=== PATIENT | male | born 1960 | race Caucasian/White ===

== ENCOUNTER 2019-06-14 11:07 | Inpatient (IN) | payer MEDICAID ==
[~2019-06-14] VITALS: Ht 172.7 cm; Wt 88.7 kg
[2019-06-14] MEDS ORDERED: AZITHROMYCIN 500 MG in DEXT 5% WATER 250 ML IV STA (11:19)
[2019-06-14] MEDS ORDERED: SODIUM CHLORIDE 0.9% 1000ML BAG (SEPSIS BOLUS) IV ONE (11:30)
[2019-06-14] MEDS ORDERED: ACETAMINOPHEN 650MG SUPP PR ONE (11:45)
[2019-06-14 12:16] LABS: CLARITY URINE CLEAR (CLEAR); COLOR URINE DARK YELLOW (YELLOW); KETONES URINE 1+ (NEGATIVE); LEUKOCYTE ESTERASE URINE TRACE (NEGATIVE); NITRITE URINE NEGATIVE (NEGATIVE); OCCULT BLOOD URINE 3+ (NEGATIVE); PH URINE 5.5 (4.5-8.0); PROTEIN URINE 4+ (NEGATIVE)
[2019-06-14 12:17] LABS: BASOPHILS % 0.3 % (0.0-2.0); EOSINOPHILS % 0.1 % (0.0-5.0); HEMATOCRIT. 46.5 % (42.0-52.0); HEMOGLOBIN. 16.3 g/dL (14.0-18.0); LYMPHOCYTES % 12.5 % (20.0-50.0); MEAN CORPUSCULAR VOLUME 88.3 fL (80.0-94.0); MEAN PLATELET VOLUME 9.8 fl (7.4-10.4); MONOCYTES % 8.1 % (2.0-8.0); PLATELET 205 x1000/uL (130-400); RED BLOOD CELL COUNT 5.26 mill/uL (4.7-6.1); RED CELL DISTRIBUTION WIDTH 14.8 % (11.6-14.6)
[2019-06-14 12:29] LABS: CHLORIDE 96 mEq/L (98-107)
[2019-06-14] MEDS ORDERED: KCL 10MEQ/50ML PREMIX 50 ML IV ONE (13:00)
[2019-06-14] MEDS ORDERED: ONDANSETRON HCL 4MG/2ML INJ IV PRN (13:30)
[2019-06-14] MEDS ORDERED: FUROSEMIDE 40MG/4ML VIAL IVP ONE ×2 (13:30→15:15)
[2019-06-14] MEDS ORDERED: BENZONATATE 100MG CAPSULE PO PRN (13:30)
[2019-06-14] MEDS ORDERED: METOCLOPRAMIDE HCL 10MG/2ML VIAL IV PRN (13:30)
[2019-06-14] MEDS ORDERED: AZITHROMYCIN 250 MG TABLET NG SCH (15:15)
[2019-06-14] MEDS: FUROSEMIDE 40MG/4ML VIAL IVP NR (16:39)
[2019-06-14] MEDS ORDERED: CEFTRIAXONE 1 G PREMIX 50 ML IV NR (18:30)
[2019-06-14] MEDS: ACETAMINOPHEN 325MG TABLET PO PRN (21:06)
[2019-06-14] MEDS: THIAMINE HCL 100MG TABLET PO SCH (23:15)
[2019-06-15] VITALS (27 sets, daily range): BP systolic 82–138; BP diastolic 51–89
[2019-06-15] MEDS ORDERED: FUROSEMIDE 40MG/4ML VIAL IVP SCH (03:45)
[2019-06-15] MEDS ORDERED: LACT1CAP68 MT (04:20)
[2019-06-15] MEDS ORDERED: L. A1POW4 PO (04:20)
[2019-06-15] MEDS ORDERED: DOCU50LI25 MT (04:20)
[2019-06-15] MEDS ORDERED: HYDR12.54 MT (04:20)
[2019-06-15] MEDS ORDERED: PHEN64.8 MT (04:20)
[2019-06-15] MEDS ORDERED: PRIM250T33 MT (04:20)
[2019-06-15] MEDS ORDERED: LACT10SO30 MT (04:20)
[2019-06-15] MEDS ORDERED: AZITHROMYCIN 500 MG TABLET PO SCH (09:00)
[2019-06-15] MEDS ORDERED: PANTOPRAZOLE SODIUM 40 MG/VIAL IV SCH (09:00)
[2019-06-15] MEDS: ENOXAPARIN 30MG/0.3ML SYR SUBCUT SCH ×2 (09:17→22:48)
[2019-06-15] MEDS: ASCORBIC ACID 500 MG TABLET PO SCH ×4 (09:18→22:48)
[2019-06-15] MEDS: THIAMINE HCL 100MG TABLET PO SCH (09:18)
[2019-06-15] MEDS: ZINC SULFATE 220 MG ( 50 ) CAPSULE PO SCH (09:18)
[2019-06-15] MEDS: AZITHROMYCIN 250 MG TABLET NG SCH (09:18)
[2019-06-15] MEDS: ACETAMINOPHEN 325MG TABLET PO PRN (09:44)
[2019-06-15] MEDS: PHENOBARBITAL 60MG TABLET GT SCH ×2 (11:07→22:48)
[2019-06-15 11:25] LABS: CHLORIDE 99 mEq/L (98-107)
[2019-06-15 11:31] LABS: PHOSPHORUS 1.9 mg/dL (2.5-4.9)
[2019-06-15] MEDS ORDERED: PNEUMOCOCCAL 23-VAL P-SAC VAC 0.5 ML IM ONE (12:00)
[2019-06-15] MEDS ORDERED: POTASSIUM CHLORIDE 20MEQ TABLET SR PO SCH (12:30)
[2019-06-15] MEDS ORDERED: POTASSIUM CHLORIDE 20MEQ/PACKET NG SCH (13:00)
[2019-06-15] MEDS: FUROSEMIDE 40MG/4ML VIAL IVP NR (16:00)
[2019-06-15] MEDS: CEFTRIAXONE 1,000 MG in DEXTROSE 5% WATER 50 ML IV SCH (16:39)
[2019-06-15] MEDS ORDERED: CEFTRIAXONE 1 G PREMIX 50 ML IV SCH ×2 (17:00→20:00)
[2019-06-15] MEDS ORDERED: POTASSIUM PHOS,M-BASIC-D-BASIC 20 MMOL in DEXT 5% WATER 243.3333 ML IV NR (18:30)
[2019-06-15 20:49] LABS: COVID-19 PCR RNA DETECTED
[2019-06-16] VITALS: BP 114/82
[2019-06-16 04:00] VITALS: BP 126/82
[2019-06-16 08:00] VITALS: BP 128/79
[2019-06-16] MEDS: PHENOBARBITAL 60MG TABLET GT SCH ×2 (09:50→21:54)
[2019-06-16] MEDS: AZITHROMYCIN 250 MG TABLET NG SCH (09:50)
[2019-06-16] MEDS: ENOXAPARIN 30MG/0.3ML SYR SUBCUT SCH ×2 (09:50→21:53)
[2019-06-16] MEDS: ZINC SULFATE 220 MG ( 50 ) CAPSULE PO SCH (09:50)
[2019-06-16] MEDS: ASCORBIC ACID 500 MG TABLET PO SCH ×2 (09:50→13:12)
[2019-06-16 12:00] VITALS: BP 115/79
[2019-06-16 13:17] LABS: COVID-19 PCR RNA DETECTED
[2019-06-16 16:00] VITALS: BP 128/78
[2019-06-16] MEDS: CEFTRIAXONE 1,000 MG in DEXTROSE 5% WATER 50 ML IV SCH (17:53)
[2019-06-16] MEDS: HYDROXYCHLOROQUINE SULFATE 200MG TABLET PO SCH (18:21)
[2019-06-16 20:00] VITALS: BP 128/84
[2019-06-17] VITALS: BP 126/82
[2019-06-17 04:00] VITALS: BP 135/89
[2019-06-17 06:27] LABS: CHLORIDE 105 mEq/L (98-107)
[2019-06-17 06:28] LABS: BASOPHILS % 0.4 % (0.0-2.0); EOSINOPHILS % 0.7 % (0.0-5.0); HEMATOCRIT. 42.2 % (42.0-52.0); HEMOGLOBIN. 14.7 g/dL (14.0-18.0); LYMPHOCYTES % 10.7 % (20.0-50.0); MEAN CORPUSCULAR HEMOGLOBIN 30.3 pg (28.0-32.0); MEAN PLATELET VOLUME 9.9 fl (7.4-10.4); MONOCYTES % 6.1 % (2.0-8.0); NEUTROPHILS % 82.1 % (40.0-76.0); PLATELET 271 x1000/uL (130-400); RED BLOOD CELL COUNT 4.85 mill/uL (4.7-6.1); RED CELL DISTRIBUTION WIDTH 14.7 % (11.6-14.6)
[2019-06-17 08:00] VITALS: BP 123/88
[2019-06-17] MEDS ORDERED: POTASSIUM CHLORIDE 20MEQ/PACKET GT SCH (08:00)
[2019-06-17] MEDS ORDERED: POTASSIUM CHLORIDE INJ 40 MEQ in DEXT 5% WATER 250 ML IV SCH (09:00)
[2019-06-17] MEDS: AZITHROMYCIN 250 MG TABLET NG SCH (09:18)
[2019-06-17] MEDS: HYDROXYCHLOROQUINE SULFATE 200MG TABLET PO SCH ×2 (09:18→17:51)
[2019-06-17] MEDS: ZINC SULFATE 220 MG ( 50 ) CAPSULE PO SCH (09:18)
[2019-06-17] MEDS: ASCORBIC ACID 500 MG TABLET PO SCH ×2 (09:19→17:52)
[2019-06-17] MEDS: PHENOBARBITAL 60MG TABLET GT SCH ×2 (09:19→20:12)
[2019-06-17] MEDS: ENOXAPARIN 30MG/0.3ML SYR SUBCUT SCH ×2 (09:19→20:13)
[2019-06-17 12:00] VITALS: BP 124/86
[2019-06-17 12:31] LABS: PHOSPHORUS 1.2 mg/dL (2.5-4.9)
[2019-06-17 16:00] VITALS: BP 114/78
[2019-06-17] MEDS: CEFTRIAXONE 1,000 MG in DEXTROSE 5% WATER 50 ML IV SCH (17:52)
[2019-06-17] MEDS ORDERED: POTASSIUM PHOS,M-BASIC-D-BASIC 20 MMOL in DEXT 5% WATER 243.3333 ML IV ONE (18:00)
[2019-06-17 20:00] VITALS: BP 126/82
[2019-06-18] VITALS: BP 137/56
[2019-06-18 04:00] VITALS: BP 141/87
[2019-06-18 07:28] LABS: CHLORIDE 104 mEq/L (98-107)
[2019-06-18 07:35] LABS: PHOSPHORUS 1.8 mg/dL (2.5-4.9)
[2019-06-18] MEDS: POTASSIUM CHLORIDE 20MEQ TABLET SR PO NR ×2 (07:45→09:34)
[2019-06-18 08:00] VITALS: BP 142/69
[2019-06-18] MEDS: PHENOBARBITAL 60MG TABLET GT SCH ×2 (09:34→20:07)
[2019-06-18] MEDS: ZINC SULFATE 220 MG ( 50 ) CAPSULE PO SCH (09:34)
[2019-06-18] MEDS: HYDROXYCHLOROQUINE SULFATE 200MG TABLET PO SCH ×2 (09:34→17:55)
[2019-06-18] MEDS: ASCORBIC ACID 500 MG TABLET PO SCH ×2 (09:34→17:55)
[2019-06-18] MEDS: AZITHROMYCIN 250 MG TABLET NG SCH (09:34)
[2019-06-18] MEDS: ENOXAPARIN 30MG/0.3ML SYR SUBCUT SCH ×2 (09:35→20:07)
[2019-06-18 12:00] VITALS: BP 129/80
[2019-06-18] MEDS ORDERED: POTASSIUM PHOS,M-BASIC-D-BASIC 20 MMOL in DEXT 5% WATER 243.3333 ML IV NR (13:00)
[2019-06-18 16:00] VITALS: BP 142/86
[2019-06-18] MEDS: CEFTRIAXONE 1,000 MG in DEXTROSE 5% WATER 50 ML IV SCH (18:35)
[2019-06-18 20:00] VITALS: BP 129/81
[2019-06-18] MEDS: ACETAMINOPHEN 325MG TABLET PO PRN (20:55)
[2019-06-19] VITALS: BP 118/75
[2019-06-19 04:00] VITALS: BP 114/78
[2019-06-19 08:00] VITALS: BP 130/79
[2019-06-19] MEDS: ENOXAPARIN 30MG/0.3ML SYR SUBCUT SCH ×2 (10:42→21:12)
[2019-06-19] MEDS: ASCORBIC ACID 500 MG TABLET PO SCH ×2 (10:42→19:05)
[2019-06-19] MEDS: ZINC SULFATE 220 MG ( 50 ) CAPSULE PO SCH (10:42)
[2019-06-19] MEDS: HYDROXYCHLOROQUINE SULFATE 200MG TABLET PO SCH ×2 (10:43→19:05)
[2019-06-19] MEDS: PHENOBARBITAL 60MG TABLET GT SCH ×2 (10:43→21:12)
[2019-06-19 12:00] VITALS: BP 128/78
[2019-06-19 16:00] VITALS: BP 124/75
[2019-06-19 20:00] VITALS: BP 126/88
[2019-06-20] VITALS: BP 123/85
[2019-06-20 04:00] VITALS: BP 127/84
[2019-06-20 06:44] LABS: CHLORIDE 109 mEq/L (98-107)
[2019-06-20 06:49] LABS: PHOSPHORUS 3.2 mg/dL (2.5-4.9)
[2019-06-20] MEDS ORDERED: POTASSIUM CHLORIDE 20MEQ TABLET SR PO ONE (07:00)
[2019-06-20 08:00] VITALS: BP 127/76
[2019-06-20] MEDS: HYDROXYCHLOROQUINE SULFATE 200MG TABLET PO SCH ×2 (10:00→17:39)
[2019-06-20] MEDS: ENOXAPARIN 30MG/0.3ML SYR SUBCUT SCH ×2 (10:00→22:06)
[2019-06-20] MEDS: ZINC SULFATE 220 MG ( 50 ) CAPSULE PO SCH (10:01)
[2019-06-20] MEDS: ASCORBIC ACID 500 MG TABLET PO SCH ×2 (10:01→17:39)
[2019-06-20] MEDS: PHENOBARBITAL 60MG TABLET GT SCH (10:16)
[2019-06-20 13:14] VITALS: BP 102/77
[2019-06-20] MEDS ORDERED: POTASSIUM CHLORIDE 20MEQ TABLET SR PO SCH (13:30)
[2019-06-20 16:55] VITALS: BP 115/85
[2019-06-20 20:00] VITALS: BP 115/77
[2019-06-21] VITALS: BP 144/88
[2019-06-21 04:00] VITALS: BP 122/75
[2019-06-21 08:00] VITALS: BP 117/83
[2019-06-21] MEDS: ENOXAPARIN 30MG/0.3ML SYR SUBCUT SCH (08:27)
[2019-06-21] MEDS: HYDROXYCHLOROQUINE SULFATE 200MG TABLET PO SCH (08:27)
[2019-06-21] MEDS: ASCORBIC ACID 500 MG TABLET PO SCH ×2 (08:27→16:54)
[2019-06-21] MEDS: ZINC SULFATE 220 MG ( 50 ) CAPSULE PO SCH (08:27)
[2019-06-21 12:00] VITALS: BP 114/83
[2019-06-21 16:00] VITALS: BP 132/81
[2019-06-21 20:00] VITALS: BP 126/79
[2019-06-22] VITALS: BP 130/84
[2019-06-22 04:00] VITALS: BP 119/78
[2019-06-22] MEDS: ACETAMINOPHEN 325MG TABLET PO PRN (04:18)
[2019-06-22 08:00] VITALS: BP 117/73
[2019-06-22] MEDS: ZINC SULFATE 220 MG ( 50 ) CAPSULE PO SCH (09:07)
[2019-06-22] MEDS: ASCORBIC ACID 500 MG TABLET PO SCH ×2 (09:07→16:17)
[2019-06-22] MEDS: ENOXAPARIN 40MG/0.4ML SYR SUBCUT SCH (09:07)
[2019-06-22 12:00] VITALS: BP 129/75
[2019-06-22 16:00] VITALS: BP 125/80
[2019-06-22 20:00] VITALS: BP 121/91
[2019-06-23] VITALS: BP 125/86
[2019-06-23 04:00] VITALS: BP 128/81
[2019-06-23] MEDS: ACETAMINOPHEN 325MG TABLET PO PRN (06:35)
[2019-06-23 08:00] VITALS: BP 110/68
[2019-06-23] MEDS: ZINC SULFATE 220 MG ( 50 ) CAPSULE PO SCH (09:58)
[2019-06-23] MEDS: ASCORBIC ACID 500 MG TABLET PO SCH ×2 (09:59→17:13)
[2019-06-23] MEDS: ENOXAPARIN 40MG/0.4ML SYR SUBCUT SCH (09:59)
[2019-06-23 10:08] LABS: CHLORIDE 105 mEq/L (98-107)
[2019-06-23 12:52] VITALS: BP 103/73
[2019-06-23] MEDS ORDERED: POTASSIUM CHLORIDE 20MEQ TABLET SR PO NR (13:29)
[2019-06-23 16:31] VITALS: BP 110/72
[2019-06-23 20:05] VITALS: BP 109/77
[2019-06-24] VITALS (7 sets, daily range): BP systolic 89–140; BP diastolic 61–80
[2019-06-24] MEDS: ASCORBIC ACID 500 MG TABLET PO SCH ×2 (09:49→17:30)
[2019-06-24] MEDS: ENOXAPARIN 40MG/0.4ML SYR SUBCUT SCH (09:49)
[2019-06-24] MEDS: ZINC SULFATE 220 MG ( 50 ) CAPSULE PO SCH (09:49)
[2019-06-25] VITALS: BP 115/74
[2019-06-25 04:00] VITALS: BP 118/72
[2019-06-25 08:00] VITALS: BP 118/76
[2019-06-25] MEDS: ZINC SULFATE 220 MG ( 50 ) CAPSULE PO SCH (08:32)
[2019-06-25] MEDS: ENOXAPARIN 40MG/0.4ML SYR SUBCUT SCH (08:32)
[2019-06-25] MEDS: ASCORBIC ACID 500 MG TABLET PO SCH ×2 (08:32→22:51)
[2019-06-25 12:00] VITALS: BP 110/70
[2019-06-25 16:00] VITALS: BP 113/69
[2019-06-25 20:00] VITALS: BP 128/84
[2019-06-26] VITALS: BP 125/84
[2019-06-26 04:00] VITALS: BP 132/80
[2019-06-26 08:00] VITALS: BP 120/81
[2019-06-26] MEDS: ZINC SULFATE 220 MG ( 50 ) CAPSULE PO SCH (09:31)
[2019-06-26] MEDS: ASCORBIC ACID 500 MG TABLET PO SCH ×2 (09:31→16:15)
[2019-06-26] MEDS: ENOXAPARIN 40MG/0.4ML SYR SUBCUT SCH (09:31)
[2019-06-26 12:00] VITALS: BP 130/69
[2019-06-26 15:58] VITALS: BP 130/83
[2019-06-26 20:00] VITALS: BP 119/88
[2019-06-27] VITALS (7 sets, daily range): BP systolic 119–136; BP diastolic 80–90
[2019-06-27] MEDS: ACETAMINOPHEN 325MG TABLET PO PRN (00:47)
[2019-06-27] MEDS: ZINC SULFATE 220 MG ( 50 ) CAPSULE PO SCH (09:46)
[2019-06-27] MEDS: ENOXAPARIN 40MG/0.4ML SYR SUBCUT SCH (09:46)
[2019-06-27] MEDS: ASCORBIC ACID 500 MG TABLET PO SCH ×2 (09:46→16:30)
[2019-06-27 10:11] LABS: HEMATOCRIT 40.7 % (42.0-52.0); HEMOGLOBIN 13.9 g/dL (14.0-18.0); MEAN CORPUSCULAR VOLUME 90.6 fL (80.0-94.0); PLATELET 293 x1000/uL (130-400); RED BLOOD CELL COUNT 4.49 mill/uL (4.7-6.1); RED CELL DISTRIBUTION WIDTH 14.6 % (11.6-14.6)
[2019-06-27 10:17] LABS: CHLORIDE 104 mEq/L (98-107)
[2019-06-28] VITALS: BP 126/86
[2019-06-28 04:00] VITALS: BP 102/71
[2019-06-28 08:00] VITALS: BP 131/87
[2019-06-28] MEDS: ZINC SULFATE 220 MG ( 50 ) CAPSULE PO SCH (08:46)
[2019-06-28] MEDS: ASCORBIC ACID 500 MG TABLET PO SCH ×2 (08:46→16:33)
[2019-06-28] MEDS: ENOXAPARIN 40MG/0.4ML SYR SUBCUT SCH (08:46)
[2019-06-28 12:00] VITALS: BP 136/87
[2019-06-28 16:00] VITALS: BP 131/92
[2019-06-28 20:00] VITALS: BP 122/74
[2019-06-29 00:40] VITALS: BP 140/99
[2019-06-29 04:00] VITALS: BP 128/87
[2019-06-29 08:00] VITALS: BP 132/91
[2019-06-29] MEDS: ENOXAPARIN 40MG/0.4ML SYR SUBCUT SCH (08:45)
[2019-06-29] MEDS: ZINC SULFATE 220 MG ( 50 ) CAPSULE PO SCH (08:45)
[2019-06-29] MEDS: ASCORBIC ACID 500 MG TABLET PO SCH ×2 (08:46→16:28)
[2019-06-29 12:00] VITALS: BP 119/92
[2019-06-29 16:00] VITALS: BP 111/83
[2019-06-29 20:00] VITALS: BP 143/101
[2019-06-30] VITALS: BP 139/98
[2019-06-30] MEDS: ACETAMINOPHEN 325MG TABLET PO PRN (03:22)
[2019-06-30 04:00] VITALS: BP 148/99
[2019-06-30 08:00] VITALS: BP 154/97
[2019-06-30] MEDS: ZINC SULFATE 220 MG ( 50 ) CAPSULE PO SCH (09:33)
[2019-06-30] MEDS: ENOXAPARIN 40MG/0.4ML SYR SUBCUT SCH (09:33)
[2019-06-30] MEDS: ASCORBIC ACID 500 MG TABLET PO SCH ×2 (09:33→18:02)
[2019-06-30 12:00] VITALS: BP 139/92
[2019-06-30 16:00] VITALS: BP 131/95
[2019-06-30 20:00] VITALS: BP 115/92
[2019-07-01] VITALS: BP 127/93
[2019-07-01 04:00] VITALS: BP 130/90
[2019-07-01 08:00] VITALS: BP 120/87
[2019-07-01] MEDS: ASCORBIC ACID 500 MG TABLET PO SCH (09:15)
[2019-07-01] MEDS: ZINC SULFATE 220 MG ( 50 ) CAPSULE PO SCH (09:15)
[2019-07-01] MEDS: ENOXAPARIN 40MG/0.4ML SYR SUBCUT SCH (09:15)
[2019-07-01 15:22] VITALS: BP 131/86
== END 2019-07-01 16:45 | DRG 720 ==
LOC: ER 11:30 → MICUNO 12:46 → EEVIPCON 12:46 → EDBEDREQ 12:56 → EDBEDREQTM 12:56 → EDBEDREQ 19:35 → CANRESERV 06-15 01:09 → ENRESERV 06-15 01:09 → 7WST 06-15 15:02 → 5WST 06-29 18:14
PROVIDERS: ADMIT Internal Medicine; ATTEND Internal Medicine
DX: A41.89 Other specified sepsis (principal); U07.1 COVID-19; J96.01 Acute respiratory failure with hypoxia; G93.41 Metabolic encephalopathy; E44.0 Moderate protein-calorie malnutrition; D72.810 Lymphocytopenia; E11.9 Type 2 diabetes mellitus without complications; E87.8 Other disorders of electrolyte and fluid balance, not elsewhere classified; J12.89 Other viral pneumonia; E87.1 Hypo-osmolality and hyponatremia; E87.6 Hypokalemia; G40.909 Epilepsy, unspecified, not intractable, without status epilepticus; I10 Essential (primary) hypertension; E83.39 Other disorders of phosphorus metabolism; Z68.29 Body mass index [BMI] 29.0-29.9, adult; Z87.440 Personal history of urinary (tract) infections; Z93.1 Gastrostomy status
CPT/HCPCS: 36415; 71045; 80048; 80053; 81003; 82728; 82962; 83605; 83615; 83735; 83880; 84100; 84145; 84484; 85025; 85027; 85379; 86140; 87635; 87804; 90732; 93005; 99291; C9113; J0456; J0696; J1650; J1940; J3480; J3490; J7030; J7060

== ENCOUNTER 2022-08-25 08:57 | Inpatient (IN) | payer MEDICAID ==
[~2022-08-25] VITALS: Ht 167.6 cm; Wt 107.5 kg
[~2022-08-25 08:57] MED LIST: DOCU50LI25 MT; HYDR12.54 MT; LACT10SO81 MT; LACT1CAP68 MT; PHEN64.8 MT; PRIM250T7 MT
[2022-08-25 09:29] LABS: BG BASE EXCESS -1.7 mmol/L (-2.0-2.0); BG DEOXYHEMOGLOBIN 0.2 % (0.0-5.0); BG FRACTION INSPIRED OXYGEN 100; BG HCO3 ACT 22.2 mmol/L (22.0-26.0); BG METHEMOGLOBIN 0.4 % (0.0-1.5); BG OXYGEN SATURATION 99.8 % (92.0-98.5); BG OXYHEMOGLOBIN 98.4 % (94.0-97.0); BG PCO2 35.5 mmHg (35.0-45.0); BG PH 7.414 (7.350-7.450); BG PO2 382.6 mmHg (75.0-100.0); BG SAMPLE SITE RIGHT RADIAL; BG TOTAL HEMOGLOBIN 16.4 g/dL (12.0-18.0); BG VENT MODE MASK - NRB
[2022-08-25 09:58] LABS: BASOPHILS % 0.6 % (0.0-2.0); EOSINOPHILS % 0.7 % (0.0-5.0); HEMATOCRIT. 43.1 % (42.0-52.0); HEMOGLOBIN. 14.8 g/dL (14.0-18.0); LYMPHOCYTES % 10.3 % (20.0-50.0); MEAN CORPUSCULAR HEMOGLOBIN 30.6 pg (28.0-32.0); MEAN CORPUSCULAR VOLUME 89.5 fL (80.0-94.0); MEAN PLATELET VOLUME 8.8 fl (7.4-10.4); MONOCYTES % 5.9 % (2.0-8.0); NEUTROPHILS % 82.5 % (40.0-76.0); PLATELET 226 x1000/uL (130-400); RED BLOOD CELL COUNT 4.82 mill/uL (4.7-6.1); RED CELL DISTRIBUTION WIDTH 14.4 % (11.6-14.6)
[2022-08-25 10:06] LABS: CHLORIDE 107 mEq/L (98-107)
[2022-08-25 10:16] LABS: ETHANOL BLOOD < 10 mg/dL (-10)
[2022-08-25 10:32] LABS: *AMPHETAMINES SCREEN URINE NEGATIVE (NEGATIVE); *BARBITURATES SCREEN URINE PRESUMTIVE POSITIVE (NEGATIVE); *BENZODIAZEPINES SCREEN URINE NEGATIVE (NEGATIVE); *COCAINE SCREEN URINE NEGATIVE (NEGATIVE); CANNABINOID URINE SCREEN NEGATIVE (NEGATIVE); METHADONE URINE SCREEN NEGATIVE (NEGATIVE); OPIATES URINE SCREEN NEGATIVE (NEGATIVE); PHENCYCLIDINE URINE SCREEN NEGATIVE (NEGATIVE)
[2022-08-25 14:00] VITALS: BP 141/83; PULSE 72; RESP 20; TEMP 97.3
[2022-08-25 14:12] VITALS: BP 132/87; PULSE 77; RESP 20; TEMP 97.5
[2022-08-25 16:00] VITALS: BP 141/83; PULSE 72; RESP 20; TEMP 97.3
[2022-08-25] MEDS ORDERED: CLONIDINE 0.1MG TABLET PO PRN (16:30)
[2022-08-25] MEDS ORDERED: MAGNESIUM/ALUMINUM HYDROXIDE/SIMETHICONE 30ML UDC PO PRN (16:30)
[2022-08-25] MEDS ORDERED: DIPHENHYDRAMINE 50MG/ML VIAL IV PRN (16:30)
[2022-08-25] MEDS ORDERED: IPRATROPIUM/ALBUTEROL 0.5-3(2.5)MG/3ML NEB NEB PRN (16:30)
[2022-08-25] MEDS ORDERED: ONDANSETRON HCL 4MG/2ML INJ IV PRN (16:30)
[2022-08-25] MEDS ORDERED: LORAZEPAM 2MG/ML CPJ IV PRN (16:30)
[2022-08-25] MEDS ORDERED: ACETAMINOPHEN 325MG TABLET PO PRN ×2 (16:30)
[2022-08-25] MEDS ORDERED: LACTULOSE 20G/30ML UDC PO PRN (16:30)
[2022-08-25] MEDS ORDERED: ERGOCALCIFEROL 50000UNITS CAPSULE PO SCH (18:00)
[2022-08-25] MEDS ORDERED: MVI, ADULT NO.1 10 ML, FOLIC ACID 1 MG, THIAMINE HCL 100 MG in SODIUM CHLORIDE 0.9% 1,0... IV SCH ×4 (18:00)
[2022-08-25] MEDS ORDERED: PHENOBARBITAL 60MG TABLET PO SCH (18:00)
[2022-08-25] MEDS: ENOXAPARIN 40MG/0.4ML SYR SUBCUT SCH (19:13)
[2022-08-25 20:00] VITALS: BP 142/76; PULSE 87; RESP 20; TEMP 96.9
[2022-08-25] MEDS ORDERED: LEVETIRACETAM 500MG/5ML CUP PO SCH (21:00)
[2022-08-26] VITALS (7 sets, daily range): BP systolic 124–150; BP diastolic 76–94; PULSE 72–96; RESP 16–22; TEMP 96.8–99.5; O2SAT 96
[2022-08-26] MEDS: SODIUM CHLORIDE 0.9% INJ 3ML FLUSH IVF SCH ×3 (06:14→20:42)
[2022-08-26] MEDS ORDERED: HYDROCHLOROTHIAZIDE 25MG TABLET PO SCH (09:00)
[2022-08-26] MEDS ORDERED: DOCUSATE SODIUM 250MG CAPSULE PO SCH (09:00)
[2022-08-26 09:20] LABS: CLARITY URINE CLEAR (CLEAR); COLOR URINE YELLOW (YELLOW); KETONES URINE TRACE (NEGATIVE); LEUKOCYTE ESTERASE URINE NEGATIVE (NEGATIVE); NITRITE URINE NEGATIVE (NEGATIVE); OCCULT BLOOD URINE 1+ (NEGATIVE); PH URINE 6.5 (4.5-8.0); PROTEIN URINE NEGATIVE (NEGATIVE); SPECIFIC GRAVITY URINE 1.022 (1.005-1.030)
[2022-08-26 09:22] LABS: BG BASE EXCESS -2.1 mmol/L (-2.0-2.0); BG CARBOXYHEMOGLOBIN 1.1 % (0.5-1.5); BG DEOXYHEMOGLOBIN 2.4 % (0.0-5.0); BG FRACTION INSPIRED OXYGEN 40; BG HCO3 ACT 22.4 mmol/L (22.0-26.0); BG METHEMOGLOBIN 0.3 % (0.0-1.5); BG OXYGEN SATURATION 97.6 % (92.0-98.5); BG OXYHEMOGLOBIN 96.2 % (94.0-97.0); BG PCO2 38.1 mmHg (35.0-45.0); BG PH 7.388 (7.350-7.450); BG PO2 95.8 mmHg (75.0-100.0); BG SAMPLE SITE RIGHT RADIAL; BG TOTAL HEMOGLOBIN 15.9 g/dL (12.0-18.0); BG VENT MODE NASAL CANNULA
[2022-08-26] MEDS ORDERED: MAGNESIUM/ALUMINUM HYDROXIDE/SIMETHICONE 30ML UDC NG PRN (14:15)
[2022-08-26] MEDS ORDERED: LACTULOSE 20G/30ML UDC NG PRN (14:15)
[2022-08-26] MEDS ORDERED: IPRATROPIUM/ALBUTEROL 0.5-3(2.5)MG/3ML NEB NEB SCH (14:15)
[2022-08-26] MEDS ORDERED: ACETAMINOPHEN 325MG TABLET NG PRN ×2 (16:30)
[2022-08-26] MEDS ORDERED: PHENOBARBITAL 60MG TABLET NG SCH (17:00)
[2022-08-26] MEDS: PHENOBARBITAL ELIXIR 30 MG/7.5ML UDC NG SCH (17:08)
[2022-08-26] MEDS: ENOXAPARIN 40MG/0.4ML SYR SUBCUT SCH (17:09)
[2022-08-26] MEDS: LEVETIRACETAM 500MG/5ML CUP NG SCH (20:41)
[2022-08-26] MEDS: IPRATROPIUM/ALBUTEROL 0.5-3(2.5)MG/3ML NEB HHN SCH (20:46)
[2022-08-27] VITALS (10 sets, daily range): BP systolic 133–157; BP diastolic 80–94; PULSE 72–108; RESP 16–23; TEMP 97–99.7; O2SAT 94
[2022-08-27] MEDS: IPRATROPIUM/ALBUTEROL 0.5-3(2.5)MG/3ML NEB HHN SCH ×4 (01:56→21:40)
[2022-08-27] MEDS: SODIUM CHLORIDE 0.9% INJ 3ML FLUSH IVF SCH ×3 (06:28→21:27)
[2022-08-27] MEDS: LEVETIRACETAM 500MG/5ML CUP NG SCH ×2 (09:00→21:18)
[2022-08-27] MEDS: HYDROCHLOROTHIAZIDE 25MG TABLET NG SCH (09:00)
[2022-08-27] MEDS: ENOXAPARIN 30MG/0.3ML SYR SUBCUT SCH ×2 (09:00→21:18)
[2022-08-27] MEDS: DOCUSATE SODIUM SUGAR FREE 100MG/10ML UDC NG SCH (09:00)
[2022-08-27] MEDS: PHENOBARBITAL ELIXIR 30 MG/7.5ML UDC NG SCH (09:00)
[2022-08-27] MEDS: PIPERACILLIN/TAZOBACTAM 3.375 G in DEXTROSE 5% WATER 50 ML IV SCH ×2 (13:22→21:19)
[2022-08-27] MEDS: NYSTATIN POWDER 15GM TOP SCH (17:00)
[2022-08-28] VITALS (10 sets, daily range): BP systolic 119–151; BP diastolic 46–100; PULSE 65–116; RESP 18–22; TEMP 97–99.8; O2SAT 98
[2022-08-28] MEDS: IPRATROPIUM/ALBUTEROL 0.5-3(2.5)MG/3ML NEB HHN SCH ×4 (01:53→21:08)
[2022-08-28] MEDS: PIPERACILLIN/TAZOBACTAM 3.375 G in DEXTROSE 5% WATER 50 ML IV SCH ×3 (05:37→21:17)
[2022-08-28] MEDS: SODIUM CHLORIDE 0.9% INJ 3ML FLUSH IVF SCH ×3 (05:38→21:12)
[2022-08-28] MEDS: NYSTATIN POWDER 15GM TOP SCH ×3 (09:26→17:00)
[2022-08-28] MEDS: ENOXAPARIN 30MG/0.3ML SYR SUBCUT SCH ×2 (09:26→21:11)
[2022-08-28] MEDS: HYDROCHLOROTHIAZIDE 25MG TABLET NG SCH (09:27)
[2022-08-28] MEDS: LEVETIRACETAM 500MG/5ML CUP NG SCH ×2 (09:28→21:11)
[2022-08-28] MEDS: DOCUSATE SODIUM SUGAR FREE 100MG/10ML UDC NG SCH (09:28)
[2022-08-28 12:37] LABS: BASOPHILS % 0.4 % (0.0-2.0); EOSINOPHILS % 1.7 % (0.0-5.0); HEMATOCRIT. 45.2 % (42.0-52.0); HEMOGLOBIN. 15.4 g/dL (14.0-18.0); LYMPHOCYTES % 9.8 % (20.0-50.0); MEAN CORPUSCULAR HEMOGLOBIN 30.8 pg (28.0-32.0); MEAN CORPUSCULAR VOLUME 90.1 fL (80.0-94.0); MEAN PLATELET VOLUME 9.3 fl (7.4-10.4); MONOCYTES % 10.3 % (2.0-8.0); NEUTROPHILS % 77.8 % (40.0-76.0); PLATELET 253 x1000/uL (130-400); RED BLOOD CELL COUNT 5.02 mill/uL (4.7-6.1); RED CELL DISTRIBUTION WIDTH 14.8 % (11.6-14.6)
[2022-08-28 12:44] LABS: PROTHROMBIN TIME 10.3 sec (9.6-11.0)
[2022-08-28 12:51] LABS: CHLORIDE 107 mEq/L (98-107)
[2022-08-28] MEDS ORDERED: POTASSIUM CHLORIDE 20MEQ/PACKET PO NR (21:00)
[2022-08-29] VITALS (12 sets, daily range): BP systolic 111–147; BP diastolic 60–94; PULSE 55–89; RESP 16–20; TEMP 97–98.7; O2SAT 95–98
[2022-08-29] MEDS: IPRATROPIUM/ALBUTEROL 0.5-3(2.5)MG/3ML NEB HHN SCH ×4 (02:26→21:31)
[2022-08-29 05:22] LABS: BASOPHILS % 0.4 % (0.0-2.0); EOSINOPHILS % 2.8 % (0.0-5.0); HEMATOCRIT. 41.4 % (42.0-52.0); HEMOGLOBIN. 14.2 g/dL (14.0-18.0); LYMPHOCYTES % 15.3 % (20.0-50.0); MEAN CORPUSCULAR HEMOGLOBIN 30.9 pg (28.0-32.0); MEAN CORPUSCULAR VOLUME 90.1 fL (80.0-94.0); MEAN PLATELET VOLUME 9.2 fl (7.4-10.4); MONOCYTES % 9.6 % (2.0-8.0); NEUTROPHILS % 71.9 % (40.0-76.0); PLATELET 220 x1000/uL (130-400); RED CELL DISTRIBUTION WIDTH 14.5 % (11.6-14.6)
[2022-08-29 05:30] LABS: CHLORIDE 108 mEq/L (98-107)
[2022-08-29 05:43] LABS: PROTHROMBIN TIME 10.6 sec (9.6-11.0)
[2022-08-29] MEDS: PIPERACILLIN/TAZOBACTAM 3.375 G in DEXTROSE 5% WATER 50 ML IV SCH ×3 (06:06→22:46)
[2022-08-29] MEDS: SODIUM CHLORIDE 0.9% INJ 3ML FLUSH IVF SCH ×3 (06:17→22:45)
[2022-08-29] MEDS: NYSTATIN POWDER 15GM TOP SCH ×3 (09:37→16:42)
[2022-08-29] MEDS: HYDROCHLOROTHIAZIDE 25MG TABLET NG SCH (09:37)
[2022-08-29] MEDS: ENOXAPARIN 30MG/0.3ML SYR SUBCUT SCH ×2 (09:38→20:37)
[2022-08-29] MEDS: DOCUSATE SODIUM SUGAR FREE 100MG/10ML UDC NG SCH (09:38)
[2022-08-29] MEDS: LEVETIRACETAM 500MG/5ML CUP NG SCH ×2 (09:38→20:38)
[2022-08-30] VITALS (10 sets, daily range): BP systolic 131–143; BP diastolic 81–96; PULSE 67–100; RESP 17–20; TEMP 97.7–100; O2SAT 94–97
[2022-08-30] MEDS: IPRATROPIUM/ALBUTEROL 0.5-3(2.5)MG/3ML NEB HHN SCH ×4 (02:27→20:43)
[2022-08-30] MEDS: SODIUM CHLORIDE 0.9% INJ 3ML FLUSH IVF SCH ×4 (05:50→22:18)
[2022-08-30] MEDS: PIPERACILLIN/TAZOBACTAM 3.375 G in DEXTROSE 5% WATER 50 ML IV SCH ×3 (05:51→21:12)
[2022-08-30 06:31] LABS: BASOPHILS % 0.6 % (0.0-2.0); EOSINOPHILS % 3.5 % (0.0-5.0); HEMATOCRIT. 41.3 % (42.0-52.0); HEMOGLOBIN. 14.2 g/dL (14.0-18.0); LYMPHOCYTES % 16.1 % (20.0-50.0); MEAN CORPUSCULAR HEMOGLOBIN 30.9 pg (28.0-32.0); MEAN CORPUSCULAR VOLUME 89.9 fL (80.0-94.0); MEAN PLATELET VOLUME 9.4 fl (7.4-10.4); MONOCYTES % 7.5 % (2.0-8.0); NEUTROPHILS % 72.3 % (40.0-76.0); PLATELET 221 x1000/uL (130-400); RED CELL DISTRIBUTION WIDTH 14.8 % (11.6-14.6)
[2022-08-30 07:09] LABS: CHLORIDE 106 mEq/L (98-107)
[2022-08-30] MEDS ORDERED: POTASSIUM CHLORIDE 20MEQ/PACKET NG SCH (09:30)
[2022-08-30] MEDS ORDERED: ACETAMINOPHEN 650MG/20.3ML UDC NG PRN ×2 (09:39)
[2022-08-30] MEDS: LEVETIRACETAM 500MG/5ML CUP NG SCH ×2 (09:40→21:12)
[2022-08-30] MEDS: DOCUSATE SODIUM SUGAR FREE 100MG/10ML UDC NG SCH (09:40)
[2022-08-30] MEDS: HYDROCHLOROTHIAZIDE 25MG TABLET NG SCH (09:41)
[2022-08-30] MEDS: NYSTATIN POWDER 15GM TOP SCH ×3 (09:41→17:16)
[2022-08-30] MEDS: ENOXAPARIN 30MG/0.3ML SYR SUBCUT SCH (09:41)
[2022-08-30] MEDS ORDERED: LACTULOSE 20G/30ML UDC PO NR (14:30)
[2022-08-30] MEDS: METOCLOPRAMIDE HCL 10MG/2ML VIAL IV SCH (17:16)
[2022-08-31] VITALS (8 sets, daily range): BP systolic 119–158; BP diastolic 69–89; PULSE 68–86; RESP 18–22; TEMP 97.3–98.8; O2SAT 98
[2022-08-31] MEDS: METOCLOPRAMIDE HCL 10MG/2ML VIAL IV SCH ×2 (00:21→17:43)
[2022-08-31] MEDS: IPRATROPIUM/ALBUTEROL 0.5-3(2.5)MG/3ML NEB HHN SCH ×4 (02:24→20:31)
[2022-08-31 03:27] LABS: BASOPHILS % 0.4 % (0.0-2.0); EOSINOPHILS % 3.2 % (0.0-5.0); HEMATOCRIT. 41.8 % (42.0-52.0); HEMOGLOBIN. 14.1 g/dL (14.0-18.0); LYMPHOCYTES % 19.1 % (20.0-50.0); MEAN CORPUSCULAR HEMOGLOBIN 30.3 pg (28.0-32.0); MEAN CORPUSCULAR VOLUME 89.5 fL (80.0-94.0); MEAN PLATELET VOLUME 9.4 fl (7.4-10.4); MONOCYTES % 7.4 % (2.0-8.0); NEUTROPHILS % 69.9 % (40.0-76.0); PLATELET 231 x1000/uL (130-400); RED BLOOD CELL COUNT 4.67 mill/uL (4.7-6.1); RED CELL DISTRIBUTION WIDTH 14.6 % (11.6-14.6)
[2022-08-31 03:33] LABS: PROTHROMBIN TIME 10.5 sec (9.6-11.0)
[2022-08-31 03:37] LABS: CHLORIDE 103 mEq/L (98-107)
[2022-08-31] MEDS: PIPERACILLIN/TAZOBACTAM 3.375 G in DEXTROSE 5% WATER 50 ML IV SCH ×3 (06:47→22:00)
[2022-08-31] MEDS: SODIUM CHLORIDE 0.9% INJ 3ML FLUSH IVF SCH (06:50)
[2022-08-31] MEDS ORDERED: DEXT 5%/0.9% NACL 500 ML IV ONE ×2 (07:00→08:15)
[2022-08-31] MEDS ORDERED: KCL 20MEQ/100ML PREMIX 100 ML IV ONE (07:30)
[2022-08-31] MEDS: DOCUSATE SODIUM SUGAR FREE 100MG/10ML UDC NG SCH (08:19)
[2022-08-31] MEDS: HYDROCHLOROTHIAZIDE 25MG TABLET NG SCH (08:19)
[2022-08-31] MEDS: LEVETIRACETAM 500MG/5ML CUP NG SCH ×2 (08:20→21:00)
[2022-08-31] MEDS: NYSTATIN POWDER 15GM TOP SCH ×2 (13:00→17:00)
[2022-08-31] MEDS ORDERED: LABETALOL 5MG/ML SYR 20 MG/4 ML SYRINGE IV PRN (13:30)
[2022-08-31] MEDS ORDERED: ONDANSETRON HCL 4MG/2ML INJ IV PRN (13:30)
[2022-08-31] MEDS ORDERED: MEPERIDINE HCL/PF 25MG/ML CPJ IV PRN (13:30)
[2022-08-31] MEDS ORDERED: HYDROMORPHONE HCL/PF 2MG/ML CPJ IV PRN (13:30)
[2022-09-01] VITALS: BP 133/91; PULSE 64; RESP 22; TEMP 96.8
[2022-09-01] MEDS: METOCLOPRAMIDE HCL 10MG/2ML VIAL IV SCH ×2 (00:08→11:30)
[2022-09-01] MEDS ORDERED: DEXT 5%/0.9% NACL 1,000 ML IV SCH (01:45)
[2022-09-01 04:00] VITALS: BP 133/86; PULSE 79; RESP 18; TEMP 97.3
[2022-09-01] MEDS ORDERED: LEVETIRACETAM 500MG PREMIX 100 ML IV SCH (05:00)
[2022-09-01] MEDS: SODIUM CHLORIDE 0.9% INJ 3ML FLUSH IVF SCH (06:20)
[2022-09-01] MEDS: PIPERACILLIN/TAZOBACTAM 3.375 G in DEXTROSE 5% WATER 50 ML IV SCH (06:21)
[2022-09-01 07:02] LABS: BASOPHILS % 0.5 % (0.0-2.0); EOSINOPHILS % 2.6 % (0.0-5.0); HEMATOCRIT. 41.5 % (42.0-52.0); LYMPHOCYTES % 14.2 % (20.0-50.0); MEAN CORPUSCULAR HEMOGLOBIN 30.6 pg (28.0-32.0); MEAN CORPUSCULAR VOLUME 90.3 fL (80.0-94.0); MONOCYTES % 7.6 % (2.0-8.0); NEUTROPHILS % 75.1 % (40.0-76.0); RED BLOOD CELL COUNT 4.59 mill/uL (4.7-6.1); RED CELL DISTRIBUTION WIDTH 14.5 % (11.6-14.6)
[2022-09-01 07:08] LABS: CHLORIDE 106 mEq/L (98-107)
[2022-09-01 08:19] LABS: PLATELET 219 x1000/uL (130-400)
[2022-09-01 08:29] VITALS: BP 133/71; PULSE 70; RESP 19; TEMP 97.7
[2022-09-01] MEDS: DOCUSATE SODIUM SUGAR FREE 100MG/10ML UDC NG SCH (08:35)
[2022-09-01] MEDS: LEVETIRACETAM 500MG/5ML CUP NG SCH (08:35)
[2022-09-01] MEDS: HYDROCHLOROTHIAZIDE 25MG TABLET NG SCH (08:35)
[2022-09-01] MEDS: ENOXAPARIN 30MG/0.3ML SYR SUBCUT SCH (08:36)
[2022-09-01] MEDS ORDERED: ERGOCALCIFEROL 50000UNITS CAPSULE NG SCH (09:00)
[2022-09-01] MEDS: NYSTATIN POWDER 15GM TOP SCH ×3 (09:00→13:18)
[2022-09-01 11:58] VITALS: BP 129/73; PULSE 68; RESP 16; TEMP 97.8
[2022-09-01] MEDS ORDERED: BISACODYL 10MG SUPP PR NR (12:45)
[2022-09-01 15:30] VITALS: BP 131/80; PULSE 73; RESP 18; TEMP 98.9
[2022-09-01] MEDS ORDERED: METOCLOPRAMIDE HCL 5MG TABLET PEG SCH (18:00)
== END 2022-09-01 16:00 | DRG 52 ==
LOC: ER 08:57 → 8WST 12:49 → EDBEDREQ 12:52 → 7EST 08-31 18:53
PROVIDERS: ADMIT Internal Medicine; ATTEND Internal Medicine
PROC: 4A00X4Z Measurement of Central Nervous Electrical Activity, External Approach (ICD-10-PCS; 2022-08-30)
PROC: 0DB68ZX Excision of Stomach, Via Natural or Artificial Opening Endoscopic, Diagnostic (ICD-10-PCS; principal; 2022-08-31)
PROC: 0DH63UZ Insertion of Feeding Device into Stomach, Percutaneous Approach (ICD-10-PCS; 2022-08-31)
DX: G93.41 Metabolic encephalopathy (principal); J96.01 Acute respiratory failure with hypoxia; J69.0 Pneumonitis due to inhalation of food and vomit; I69.354 Hemiplegia and hemiparesis following cerebral infarction affecting left non-dominant side; E11.9 Type 2 diabetes mellitus without complications; I50.9 Heart failure, unspecified; F03.90 Unspecified dementia, unspecified severity, without behavioral disturbance, psychotic disturbance, mood disturbance, and anxiety; I11.0 Hypertensive heart disease with heart failure; G40.909 Epilepsy, unspecified, not intractable, without status epilepticus; R13.12 Dysphagia, oropharyngeal phase; R62.7 Adult failure to thrive; K29.70 Gastritis, unspecified, without bleeding; F07.81 Postconcussional syndrome; F10.10 Alcohol abuse, uncomplicated; Z87.820 Personal history of traumatic brain injury; Z86.16 Personal history of COVID-19; Z98.2 Presence of cerebrospinal fluid drainage device; Z93.1 Gastrostomy status; Z79.899 Other long term (current) drug therapy; Z68.28 Body mass index [BMI] 28.0-28.9, adult
CPT/HCPCS: 36415; 36600; 71045; 76705; 80048; 80053; 80305; 80320; 81003; 82375; 82805; 83605; 83880; 84145; 84484; 85025; 85379; 87070; 87426; 88305; 92610; 93005; 93970; 94640; 99285; J1650; J1953; J2405; J2543; J2765; J3411; J3480; J3490; J7030; J7042; J7060; G0480

== ENCOUNTER 2025-01-28 20:05 | Inpatient (IN) | payer MEDICAID ==
[~2025-01-28] VITALS: Ht 172.7 cm; Wt 69.9 kg
[~2025-01-28 20:05] MED LIST changes: +ASPI-1497 MT; +ATOR40TA70 MT; +LEVE500T19 PO; -PHEN64.8 MT; -PRIM250T7 MT
[2025-01-28] MEDS: SODIUM CHLORIDE 0.9% (SEPSIS BOLUS) IV ONE (20:54)
[2025-01-28] MEDS: PIPERACILLIN/TAZO 3.375G/50ML 50 ML IV ONE (21:06)
[2025-01-28 21:18] LABS: BASOPHILS % 0.7 % (0.0-2.0); EOSINOPHILS % 1.1 % (0.0-5.0); HEMATOCRIT. 39.8 % (42.0-52.0); HEMOGLOBIN. 12.7 g/dL (14.0-18.0); LYMPHOCYTES % 11.6 % (20.0-50.0); MEAN PLATELET VOLUME 11.1 fl (7.4-10.4); MONOCYTES % 6.7 % (2.0-8.0); NEUTROPHILS % 79.9 % (40.0-76.0); PLATELET 275 x1000/uL (130-400); RED BLOOD CELL COUNT 4.36 mill/uL (4.7-6.1); RED CELL DISTRIBUTION WIDTH 17.7 % (11.6-14.6)
[2025-01-28 21:22] LABS: CLARITY URINE CLEAR (CLEAR); COLOR URINE DARK YELLOW (YELLOW); GLUCOSE URINE NEGATIVE (NEGATIVE); KETONES URINE NEGATIVE (NEGATIVE); LEUKOCYTE ESTERASE URINE TRACE (NEGATIVE); NITRITE URINE NEGATIVE (NEGATIVE); OCCULT BLOOD URINE 1+ (NEGATIVE); PH URINE 6.0 (4.5-8.0); PROTEIN URINE 3+ (NEGATIVE); SPECIFIC GRAVITY URINE 1.031 (1.005-1.030); UROBILINOGEN URINE 1.0 E.U./dL (0.2-1.0)
[2025-01-28 21:28] LABS: INR 1.0
[2025-01-28 21:31] LABS: CREATININE 0.7 mg/dL (0.6-1.3)
[2025-01-28 21:32] LABS: BACTERIA URINE 1+; RBC URINE 0-2 /hpf (0-2); SQUAMOUS EPITHELIAL CELL URINE FEW /lpf (RARE/1+); UREA NITROGEN BLOOD 30 mg/dL (9-23); WBC URINE 0-2 /hpf (0-2)
[2025-01-28] MEDS: VANCOMYCIN 1G PREMIX 200 ML IV ONE (21:32)
[2025-01-28 21:33] LABS: ASPARTATE AMINOTRANSFERASE 28 IU/L (<34)
[2025-01-28 21:34] LABS: BILIRUBIN DIRECT 0.1 mg/dL (<=3.0); BILIRUBIN TOTAL 0.2 mg/dL (0.1-1.0); PROTEIN TOTAL 7.5 g/dL (6.0-8.3)
[2025-01-28 21:39] LABS: TROPONIN I HIGH SENSITIVITY 10 ng/L (3.0-53)
[2025-01-28 22:53] LABS: INFLUENZA TYPE A Presumptive Negative (Pres. Neg.); INFLUENZA TYPE B Presumptive Negative (Pres. Neg.)
[2025-01-28 22:54] LABS: RESPIRATORY SYNCYTIAL VIRUS Not Detected (Not Detectd)
[2025-01-29] VITALS (7 sets, daily range): BP systolic 117–129; BP diastolic 73–82; PULSE 108–116; RESP 17–20; TEMP 35.8–36.7; O2SAT 96–98
[2025-01-29] MEDS: PIPERACILLIN/TAZO 3.375G/50ML 50 ML IV SCH (05:43)
[2025-01-29] MEDS ORDERED: VANCOMYCIN 1G PREMIX 200 ML IV SCH ×2 (06:00)
[2025-01-29] MEDS ORDERED: LEVETIRACETAM 500MG/5ML CUP PO SCH (09:00)
[2025-01-29] MEDS: LEVETIRACETAM 500MG/5ML CUP PEG SCH (10:07)
[2025-01-29] MEDS: VANCOMYCIN 750MG/150ML (BAXTER) IV SCH (10:28)
[2025-01-29 11:11] LABS: BASOPHILS % 0.5 % (0.0-2.0); EOSINOPHILS % 2.1 % (0.0-5.0); HEMATOCRIT. 37.2 % (42.0-52.0); HEMOGLOBIN. 11.8 g/dL (14.0-18.0); LYMPHOCYTES % 12.5 % (20.0-50.0); MEAN PLATELET VOLUME 10.7 fl (7.4-10.4); MONOCYTES % 4.9 % (2.0-8.0); NEUTROPHILS % 80.0 % (40.0-76.0); PLATELET 224 x1000/uL (130-400); RED BLOOD CELL COUNT 4.06 mill/uL (4.7-6.1); RED CELL DISTRIBUTION WIDTH 17.5 % (11.6-14.6)
[2025-01-29] MEDS: LACTULOSE 20G/30ML UDC PO SCH (11:23)
[2025-01-29 11:56] LABS: CREATININE 0.7 mg/dL (0.6-1.3)
[2025-01-29 11:57] LABS: UREA NITROGEN BLOOD 24 mg/dL (9-23)
[2025-01-30] VITALS (8 sets, daily range): BP systolic 122–152; BP diastolic 75–92; PULSE 114–123; RESP 14–20; TEMP 36.2–36.9; O2SAT 95–97
[2025-01-30 07:11] LABS: CREATININE 0.7 mg/dL (0.6-1.3)
[2025-01-30 07:12] LABS: UREA NITROGEN BLOOD 21 mg/dL (9-23)
[2025-01-30 07:26] LABS: BASOPHILS % 0.5 % (0.0-2.0); EOSINOPHILS % 2.2 % (0.0-5.0); HEMATOCRIT. 37.1 % (42.0-52.0); HEMOGLOBIN. 11.9 g/dL (14.0-18.0); LYMPHOCYTES % 11.4 % (20.0-50.0); MEAN PLATELET VOLUME 11.2 fl (7.4-10.4); MONOCYTES % 6.6 % (2.0-8.0); NEUTROPHILS % 79.3 % (40.0-76.0); PLATELET 248 x1000/uL (130-400); RED BLOOD CELL COUNT 4.04 mill/uL (4.7-6.1); RED CELL DISTRIBUTION WIDTH 17.4 % (11.6-14.6)
[2025-01-30] MEDS: IPRATROPIUM/ALBUTEROL 0.5-3(2.5)MG/3ML NEB HHN SCH (08:55)
[2025-01-30] MEDS: METOPROLOL TARTRATE 25MG TABLET PO NR (11:34)
[2025-01-30] MEDS: METOPROLOL TARTRATE 25MG TABLET PO SCH (21:00)
[2025-01-31] VITALS (10 sets, daily range): BP systolic 116–152; BP diastolic 73–90; PULSE 100–119; RESP 16–18; TEMP 35.6–36.5; O2SAT 91–98
[2025-01-31] MEDS: DEXT 5%/0.45% NACL 1000ML 1,000 ML IV SCH (13:24)
[2025-01-31] MEDS: IOHEXOL-350 100 ML BOTTLE ONE (19:31)
[2025-01-31] MEDS ORDERED: LEVETIRACETAM 500MG in NACL 100ML PREMIX IV SCH ×2 (21:00→22:30)
[2025-01-31] MEDS: METOPROLOL TARTRATE 5MG/5ML VIAL IV SCH (21:45)
[2025-01-31] MEDS: ENOXAPARIN 30MG/0.3ML SYR SUBCUT SCH (21:46)
[2025-02-01] VITALS (9 sets, daily range): BP systolic 110–129; BP diastolic 70–84; PULSE 77–113; RESP 16–24; TEMP 35.9–36.4; O2SAT 95–98
[2025-02-01] MEDS: LEVETIRACETAM 500MG PREMIX 100ML IV SCH (00:36)
[2025-02-01 11:55] LABS: BASOPHILS % 0.9 % (0.0-2.0); EOSINOPHILS % 1.7 % (0.0-5.0); HEMATOCRIT. 37.2 % (42.0-52.0); HEMOGLOBIN. 12.1 g/dL (14.0-18.0); LYMPHOCYTES % 13.3 % (20.0-50.0); MEAN PLATELET VOLUME 10.5 fl (7.4-10.4); MONOCYTES % 7.1 % (2.0-8.0); NEUTROPHILS % 77.0 % (40.0-76.0); PLATELET 223 x1000/uL (130-400); RED BLOOD CELL COUNT 4.09 mill/uL (4.7-6.1); RED CELL DISTRIBUTION WIDTH 17.3 % (11.6-14.6)
[2025-02-01 12:03] LABS: INR 1.1
[2025-02-01 12:27] LABS: UREA NITROGEN BLOOD 20 mg/dL (9-23)
[2025-02-01 12:29] LABS: CREATININE 1.0 mg/dL (0.6-1.3)
[2025-02-01 12:31] LABS: ASPARTATE AMINOTRANSFERASE 20 IU/L (<34); BILIRUBIN DIRECT 0.2 mg/dL (<=3.0)
[2025-02-01 12:32] LABS: BILIRUBIN TOTAL 0.4 mg/dL (0.1-1.0); PHOSPHORUS 3.7 mg/dL (2.5-4.9); PROTEIN TOTAL 6.9 g/dL (6.0-8.3)
[2025-02-01] MEDS: KCL 20MEQ/100ML PREMIX 100 ML IV SCH ×2 (14:33→18:20)
[2025-02-02] VITALS (10 sets, daily range): BP systolic 133–142; BP diastolic 68–92; PULSE 97–118; RESP 18–20; TEMP 36.3–36.6; O2SAT 96–99
[2025-02-02 07:59] LABS: BASOPHILS % 0.7 % (0.0-2.0); EOSINOPHILS % 4.0 % (0.0-5.0); HEMATOCRIT. 39.0 % (42.0-52.0); HEMOGLOBIN. 12.4 g/dL (14.0-18.0); LYMPHOCYTES % 12.8 % (20.0-50.0); MEAN PLATELET VOLUME 10.7 fl (7.4-10.4); MONOCYTES % 6.9 % (2.0-8.0); NEUTROPHILS % 75.6 % (40.0-76.0); PLATELET 249 x1000/uL (130-400); RED BLOOD CELL COUNT 4.25 mill/uL (4.7-6.1); RED CELL DISTRIBUTION WIDTH 17.2 % (11.6-14.6)
[2025-02-02 08:02] LABS: INR 1.1
[2025-02-02 08:14] LABS: CREATININE 1.0 mg/dL (0.6-1.3)
[2025-02-02 08:15] LABS: UREA NITROGEN BLOOD 16 mg/dL (9-23)
[2025-02-02 08:16] LABS: ASPARTATE AMINOTRANSFERASE 17 IU/L (<34); BILIRUBIN TOTAL 0.5 mg/dL (0.1-1.0); PROTEIN TOTAL 7.0 g/dL (6.0-8.3)
[2025-02-02] MEDS: DIATR MEGLU/DIATRIZOATE SOLN 30ML ONE (16:05)
[2025-02-03] VITALS (8 sets, daily range): BP systolic 110–143; BP diastolic 55–89; PULSE 100–128; RESP 18–20; TEMP 36.2–36.4; O2SAT 94–100
[2025-02-03] MEDS: DEXTROSE 5% WATER 1,000 ML IV SCH (09:44)
[2025-02-04] VITALS: BP 111/70; PULSE 114; RESP 18; TEMP 36.3; O2SAT 98
[2025-02-04 04:00] VITALS: BP 117/75; PULSE 113; RESP 19; TEMP 36.3; O2SAT 98
[2025-02-04 08:00] VITALS: BP 118/68; PULSE 116; RESP 19; TEMP 36.2; O2SAT 100
[2025-02-04 12:00] VITALS: BP 119/71; PULSE 107; RESP 17; TEMP 36.3; O2SAT 96
[2025-02-04] MEDS: METOPROLOL TARTRATE 50MG TABLET PO SCH (13:09)
[2025-02-04 18:00] LABS: CREATININE 0.9 mg/dL (0.6-1.3); UREA NITROGEN BLOOD 17 mg/dL (9-23)
[2025-02-04] MEDS: POTASSIUM CHLORIDE 20MEQ TABLET SR PO NR (19:30)
[2025-02-04 20:00] VITALS: BP 128/81; PULSE 98; RESP 22; TEMP 36.3; O2SAT 94
[2025-02-04] MEDS: KCL 20MEQ/100ML PREMIX 100 ML IV SCH (20:11)
[2025-02-05] VITALS: BP 138/86; PULSE 101; RESP 20; TEMP 36.5; O2SAT 97
[2025-02-05 04:00] VITALS: BP 126/74; PULSE 96; RESP 20; TEMP 36.4; O2SAT 100
[2025-02-05 08:00] VITALS: BP 128/73; PULSE 98; RESP 15; TEMP 36.3; O2SAT 97
[2025-02-05 12:00] VITALS: BP 125/75; PULSE 100; RESP 16; TEMP 36.2; O2SAT 94
[2025-02-05 16:00] VITALS: BP 121/80; PULSE 101; RESP 17; TEMP 38; O2SAT 96
[2025-02-05 20:00] VITALS: BP 132/84; PULSE 106; RESP 21; TEMP 36.2; O2SAT 99
[2025-02-05 22:29] LABS: CREATININE 0.8 mg/dL (0.6-1.3); UREA NITROGEN BLOOD 12 mg/dL (9-23)
[2025-02-06] VITALS: BP 135/78; PULSE 89; RESP 19; TEMP 36.2; O2SAT 97
[2025-02-06 04:00] VITALS: BP 156/75; PULSE 102; RESP 20; TEMP 36.2; O2SAT 99
[2025-02-06 08:00] VITALS: BP 115/75; PULSE 111; RESP 15; TEMP 36.3; O2SAT 95
[2025-02-06] MEDS: POTASSIUM CHLORIDE 20MEQ TABLET SR PO SCH (11:00)
[2025-02-06 12:00] VITALS: BP 117/74; PULSE 101; RESP 16; TEMP 36.6; O2SAT 96
[2025-02-06 16:00] VITALS: BP 134/68; PULSE 90; RESP 18; TEMP 36.3; O2SAT 95
[2025-02-06] MEDS: LEVOFLOXACIN 250MG TABLET PO SCH (17:00)
[2025-02-06 20:00] VITALS: BP 149/81; PULSE 101; RESP 20; TEMP 36.5; O2SAT 98
[2025-02-07] VITALS: BP 116/58; PULSE 72; RESP 18; TEMP 36.4; O2SAT 98
[2025-02-07 04:00] VITALS: BP 119/68; PULSE 72; RESP 18; TEMP 36.4; O2SAT 97
[2025-02-07 08:00] VITALS: BP 127/86; PULSE 95; RESP 18; TEMP 36.5; O2SAT 97
[2025-02-07 12:00] VITALS: BP 127/77; PULSE 87; RESP 17; TEMP 36.6; O2SAT 100; O2SAT 87
[2025-02-07 16:00] VITALS: BP 143/80; PULSE 91; RESP 18; TEMP 36.7; O2SAT 98
== END 2025-02-07 18:00 | DRG 380 ==
LOC: ER 20:05 → 6WST 22:29 → EDBEDREQ 22:32 → EDBEDREQTM 22:32 → ENRESERV 22:57
PROVIDERS: ADMIT Internal Medicine; ATTEND Internal Medicine
PROC: 0JBD0ZZ Excision of Right Upper Arm Subcutaneous Tissue and Fascia, Open Approach (ICD-10-PCS; principal; 2025-02-03)
PROC: 0JB70ZZ Excision of Back Subcutaneous Tissue and Fascia, Open Approach (ICD-10-PCS; 2025-02-03)
PROC: 0JBL0ZZ Excision of Right Upper Leg Subcutaneous Tissue and Fascia, Open Approach (ICD-10-PCS; 2025-02-03)
DX: L89.154 Pressure ulcer of sacral region, stage 4 (principal); J96.01 Acute respiratory failure with hypoxia; L89.114 Pressure ulcer of right upper back, stage 4; L89.214 Pressure ulcer of right hip, stage 4; J18.9 Pneumonia, unspecified organism; L89.894 Pressure ulcer of other site, stage 4; R13.12 Dysphagia, oropharyngeal phase; J44.0 Chronic obstructive pulmonary disease with (acute) lower respiratory infection; I11.0 Hypertensive heart disease with heart failure; D64.9 Anemia, unspecified; E11.9 Type 2 diabetes mellitus without complications; F03.90 Unspecified dementia, unspecified severity, without behavioral disturbance, psychotic disturbance, mood disturbance, and anxiety; R62.7 Adult failure to thrive; I50.9 Heart failure, unspecified; L22 Diaper dermatitis; M41.9 Scoliosis, unspecified; K59.00 Constipation, unspecified; Z86.73 Personal history of transient ischemic attack (TIA), and cerebral infarction without residual deficits; Z93.1 Gastrostomy status; Z74.01 Bed confinement status; Z68.23 Body mass index [BMI] 23.0-23.9, adult; Z79.899 Other long term (current) drug therapy
CPT/HCPCS: 36415; 71045; 71275; 74018; 74174; 80048; 80053; 80076; 80202; 81003; 82962; 83605; 83735; 83880; 84100; 84145; 84484; 85025; 87420; 87426; 87804; 93005; 94070; 94640; 94664; 94760; 98960; 99285; A4606; G0378; J1650; J1953; J2543; J3373; J3480; J3490; J7030; J7070; Q9963; Q9967